=== PATIENT | female | born 1985 | race African-American/Black ===

== ENCOUNTER 2025-04-03 15:59 | Emergency (ER) | payer BC ==
[~2025-04-03] VITALS: Ht 177.8 cm; Wt 118.0 kg
[2025-04-03 16:01] VITALS: O2SAT 98
[2025-04-03 16:54] LABS: BASOPHILS % 0.5 % (0.0-2.0); EOSINOPHILS % 0.8 % (0.0-5.0); HEMATOCRIT. 35.6 % (36.0-48.0); HEMOGLOBIN. 11.4 g/dL (12.0-16.0); LYMPHOCYTES % 24.1 % (20.0-50.0); MEAN PLATELET VOLUME 8.1 fl (7.4-10.4); MONOCYTES % 4.6 % (2.0-8.0); NEUTROPHILS % 70.0 % (40.0-76.0); PLATELET 182 x1000/uL (130-400); RED BLOOD CELL COUNT 3.95 mill/uL (4.2-5.4); RED CELL DISTRIBUTION WIDTH 16.6 % (11.6-14.6)
[2025-04-03 17:00] LABS: HCG SCREEN NEGATIVE
[2025-04-03 17:02] LABS: CREATININE 0.8 mg/dL (0.6-1.0)
[2025-04-03 17:03] LABS: UREA NITROGEN BLOOD 6 mg/dL (9-23)
[2025-04-03 17:04] LABS: ASPARTATE AMINOTRANSFERASE 17 IU/L (<34); TROPONIN I HIGH SENSITIVITY < 4 ng/L (3.0-34)
[2025-04-03 17:05] LABS: BILIRUBIN DIRECT 0.3 mg/dL (<=3.0); BILIRUBIN TOTAL 0.8 mg/dL (0.1-1.0); PROTEIN TOTAL 6.3 g/dL (6.0-8.3)
[2025-04-03] MEDS: POTASSIUM CHLORIDE 20MEQ/PACKET PO SCH (18:28)
[2025-04-03 18:35] VITALS: BP 111/75; PULSE 78; RESP 18; TEMP 36.8; O2SAT 98
== END 2025-04-03 19:43 | disposition home or self-care (01) ==
LOC: ER 15:59
DX: F10.129 Alcohol abuse with intoxication, unspecified (principal); E87.6 Hypokalemia; R41.82 Altered mental status, unspecified; F12.90 Cannabis use, unspecified, uncomplicated; Z79.899 Other long term (current) drug therapy; Y90.6 Blood alcohol level of 120-199 mg/100 ml
CPT/HCPCS: 36415; 80048; 80076; 80307; 80320; 80329; 83735; 84484; 84703; 85025; 93005; 99284; G0480